=== PATIENT | female | born 1995 | race Caucasian/White ===

== ENCOUNTER 2024-12-30 12:20 | Outpatient (CLI) | payer BC, SELFPAY ==
[2024-12-31 22:57] LABS: HPV Source Cervix
[2025-01-02 08:20] LABS: Pap Test Digital Imaging Done
== END 2024-12-30 12:21 | disposition home or self-care (01) ==
PROVIDERS: Visit Provider Registered Nurse
DX: Z12.4 Encounter for screening for malignant neoplasm of cervix (principal); Z11.51 Encounter for screening for human papillomavirus (HPV); Z13.6 Encounter for screening for cardiovascular disorders
CPT/HCPCS: 80061; 87624; 87625; 88141; 88142; 88175